=== PATIENT | female | born 1985 | race Caucasian/White ===

== ENCOUNTER 2018-12-13 17:00 | Emergency (ER) | payer OTHER ==
[~2018-12-13] VITALS: Ht 157.5 cm; Wt 53.5 kg
[2018-12-13 17:10] VITALS: Ht 157.5 cm; Wt 53.5 kg
[2018-12-13 19:34] VITALS: BP 128/81
== END 2018-12-13 19:34 | disposition home or self-care (01) ==
LOC: ED 17:00
DX: S09.8XXA Other specified injuries of head, initial encounter (principal); W01.0XXA Fall on same level from slipping, tripping and stumbling without subsequent striking against object, initial encounter; Y93.89 Activity, other specified; Y92.219 Unspecified school as the place of occurrence of the external cause; Y99.8 Other external cause status